=== PATIENT | female | born 1995 | race Hispanic/Latino ===

== ENCOUNTER 2017-11-05 14:39 | Emergency (ER) | payer OTHER ==
[2017-11-05 15:01] VITALS: BP 138/80
--- NOTE | 2017-11-05 17:21 | Emergency Department Report ---
HPI - General Chief Complaint: Skin Rash Time Seen by Provider: 11/05/17 17:13 - HPI HPI: 22-year-old female presents to the emergency department from [facility], where she is currently being treated for both psychiatric issues and substance abuse, with complaint of a rash to the bilateral elbows that has been there for the past few days. It is red, blotchy, itchy. She denies the rash being painful or any bleeding or discharge. She has a past medical history of factor V Leiden, polycystic ovarian syndrome and the aforementioned psychiatric and substance issues. She has been using some [id number] lotion for the itchiness and for the rash without much relief. She denies any fever. ED Past Medical Hx - Past Medical History Previous Medical History?: Yes Additional medical history: factor 5 liden. PCOS - Surgical History Past Surgical History?: Yes Hx Breast Surgery: Yes (reconstruction x 3) Additional Surgical History: bone removed from right foot - Social History Smoking Status: Current Every Day Smoker Substance Use Type: Alcohol - Medications Home Medications: Home Medications Medication Instructions Recorded Confirmed Last Taken Type Clotrimazole 1% [Lotrimin 1%] 1 applic TP BID #1 tube 11/05/17 Unknown Rx Triamcinolone 0.1% [Kenalog 0.1% 1 applic TP TID #1 tube 11/05/17 Unknown Rx CREAM] ED Review of Systems ROS: Stated complaint: BREAK OUT ON ELBOW/NOT FEELING WELL Other details as noted in HPI Comment: All other systems reviewed and negative Constitutional: denies: chills, fever Eyes: denies: eye pain, eye discharge, vision change ENT: denies: ear pain, throat pain Respiratory: denies: cough, shortness of breath, wheezing Cardiovascular: denies: chest pain, palpitations Gastrointestinal: denies: abdominal pain, nausea, diarrhea Genitourinary: denies: urgency, dysuria, discharge Musculoskeletal: denies: back pain, joint swelling, arthralgia Skin: rash, change in color, pruritus Neurological: denies: headache, weakness, paresthesias Physical Exam - Physical Exam Vital Signs: Vital Signs 11/05/17 14:56 Temperature 98.7 F Pulse Rate 88 Respiratory 18 Rate Blood Pressure 138/80 O2 Sat by Pulse 99 Oximetry Physical Exam: GENERAL: The patient is well-developed well-nourished. HENT: Normocephalic. Atraumatic. Patient has moist mucous membranes. EYES: Extraocular motions are intact. Pupils equal reactive to light bilaterally. NECK: Supple. Trachea is midline. CHEST/LUNGS: Clear to auscultation. There is no respiratory distress noted. HEART/CARDIOVASCULAR: Regular. There is no tachycardia. There is no murmur. ABDOMEN: There is no abdominal distention. SKIN: Skin is warm and dry. Patient has a rash to the bilateral elbow and proximal forearm that shows red blotchy flat lesions that are pruritic with some signs of excoriation. There is no bleeding, weeping or drainage. NEURO: The patient is awake, alert, and oriented. The patient is cooperative. The patient has normal speech and gait. MUSCULOSKELETAL: There is no tenderness or deformity. There is no evidence of acute injury. ED Course Vital Signs 11/05/17 14:56 Temperature 98.7 F Pulse Rate 88 Respiratory 18 Rate Blood Pressure 138/80 O2 Sat by Pulse 99 Oximetry ED Medical Decision Making - Medical Decision Making Patient's rash is pruritic but not painful. It does not have the appearance of an obvious cellulitis. There is no current bleeding, weeping or drainage. Despite the patient being [place], does not appear similar to bed bugs or scabies. It is more of a nonspecific dermatitis but does have some appearance of questionable fungal. Patient will get a prescription for steroid and antifungal cream that she will mix and apply. She has also been given a referral for dermatology. Vital signs stable throughout her ED course. She will return to the ER with any worsening of her symptoms or any acute distress. - Differential Diagnosis dermatitis, cellulitis, psoriasis, eczema Critical Care Time: No Critical care attestation.: If time is entered above; I have spent that time in minutes in the direct care of this critically ill patient, excluding procedure time. ED Disposition Clinical Impression: Dermatitis Disposition: DC-01 TO HOME OR SELFCARE Is pt being admited?: No Condition: Stable Instructions: Acute Rash (ED) Additional Instructions: I have prescribed both a steroid and antifungal cream. I recommend mixing these 2 creams and your hand and then applying to the rash. I have given you a referral for local dermatologists. Return to the emergency Department with any worsening of your symptoms or any acute distress. Prescriptions: Clotrimazole 1% [Lotrimin 1%] 1 applic TP BID #1 tube Triamcinolone 0.1% [Kenalog 0.1% CREAM] 1 applic TP TID #1 tube Referrals: PRIMARY CARE, [Primary Care Provider] - 3-5 Days YOLANDE MCDERMOTT MD [Staff Physician] - 3-5 Days GERTRUDIS LUCAS MD [Staff Physician] - 3-5 Days Time of Disposition: 17:24
== END 2017-11-05 17:29 | disposition home or self-care (01) ==
LOC: ED 14:39
DX: L30.9 Dermatitis, unspecified (principal); F17.200 Nicotine dependence, unspecified, uncomplicated
CPT/HCPCS: 99282